=== PATIENT | female | born 1990 | race Caucasian/White ===

== ENCOUNTER 2025-03-20 22:54 | Emergency (ER) | payer OTHER ==
[~2025-03-20] VITALS: Ht 149.9 cm; Wt 62.6 kg
[2025-03-20 22:56] VITALS: BP 130/94; O2SAT 96
[2025-03-20] MEDS ORDERED: HYDROCODONE/APAP 10-325 MG TABLET ONE (23:33)
[2025-03-20] MEDS: HYDROCODONE/APAP 10-325 MG TABLET PO ONE (23:35)
[2025-03-20 23:46] LABS: PLATELET COUNT (AUTO) 240 K/uL (179-408); RED BLOOD CELL COUNT(AUTO) 4.06 MIL/uL (3.63-4.92); RED CELL DISTRIBUTION WIDTH 12.3 % (12.3-17.7); WHITE BLOOD COUNT (AUTO) 9.0 K/uL (3.8-11.8)
[2025-03-20 23:53] LABS: CREATININE 0.9 mg/dL (0.6-1.3); SODIUM SERUM 138 mmol/L (136-145); UREA NITROGEN, BLOOD 19 mg/dL (7-18)
[2025-03-20 23:59] LABS: ASPARTATE AMINOTRANSFERASE 12 U/L (15-37); TOTAL PROTEIN, SERUM 8.1 g/dL (6.4-8.2)
[2025-03-21 00:09] LABS: PREGNANCY TEST SERUM QUAN < 1 miul/L (0-6)
[2025-03-21 00:16] LABS: *BILIRUBIN,URIN NEGATIVE (NEGATIVE); *COLOR,URINE YELLOW (YELLOW); *KETONES,URINE TRACE (NEGATIVE); *PROTEIN,URINE NEGATIVE (NEGATIVE); *UROBILINOGEN,URINE 0.2 E.U./dl (NORMAL); LEUKOCYTE ESTERASE ,URINE 1+ (NEGATIVE); NITRITE, URINE NEGATIVE (NEGATIVE); UGLUCOSE NEGATIVE (NEGATIVE)
[2025-03-21 00:30] LABS: *BLOOD, URINE TRACE (NEGATIVE)
[2025-03-21 00:31] LABS: *CLARITY,URINE HAZY (CLEAR)
[2025-03-21 00:36] LABS: SQUAMOUS EPITHELIAL CELL,UR MANY /HPF (NONE SEEN)
[2025-03-21] MEDS ORDERED: HYDR-3980 PO (01:11)
[2025-03-21] MEDS ORDERED: DOXY100C5 PO (01:14)
[2025-03-21] MEDS ORDERED: DOXYCYCLINE HYCLATE 100 MG TABLET PO ONE (01:15)
[2025-03-21 01:26] VITALS: BP 132/69
[2025-03-23 06:07] LABS: *CHLAMYDIA NAA Negative (Negative); *GC NAA Negative (Negative); *TRIC.VAG. NAA Negative (Negative)
== END 2025-03-21 01:27 | disposition home or self-care (01) ==
LOC: ER 23:11
DX: N71.9 Inflammatory disease of uterus, unspecified (principal); E28.2 Polycystic ovarian syndrome; Z88.0 Allergy status to penicillin
CPT/HCPCS: 36415; 76856; 85025; 85730; 87086; 87491; A4606; A4663